=== PATIENT | female | born 1955 ===

== ENCOUNTER 2021-12-29 12:37 | Emergency (ER) | payer OTHER, MEDICAID ==
[~2021-12-29] VITALS: Ht 160 cm; Wt 86.2 kg
[2021-12-29 12:51] VITALS: BP 156/90
--- NOTE | 2021-12-29 15:39 | NUR ---
LAB ATTEMPTED AT BLOOD DRAW SEVERAL TIMES, UNSUCCESSFUL. DR YADAV MADE AWARE.
--- NOTE | 2021-12-29 16:05 | NUR ---
Pt ambulated from chair A to bed 12.
[2021-12-29 16:21] LABS: BASOPHILS % (AUTO) 0.4 % (0.0-2.0); EOSINOPHILS # (AUTO) 0.1 K/uL (0-0.4); EOSINOPHILS % (AUTO) 1.4 % (0.0-4.0); HEMATOCRIT 38.7 % (36-48); HEMOGLOBIN 12.8 g/dL (12.0-16.0); LYMPHOCYTES # (AUTO) 3.9 K/uL (2.5-16.5); LYMPHOCYTES % (AUTO) 39.2 % (20.5-51.1); MEAN CORPUSCULAR HEMOGLOBIN 29 pg (27-31); MEAN CORPUSCULAR HGB CONC 33 g/dL (33-37); MEAN CORPUSCULAR VOLUME 86.9 fL (80-94); MONOCYTES # (AUTO) 0.8 K/uL (0.8-1.0); MONOCYTES % (AUTO) 8.1 % (1.7-9.3); NEUTROPHILS % (AUTO) 50.9 % (42.2-75.2); PLATELET COUNT (AUTO) 430 K/uL (140-450); RED BLOOD CELL COUNT(AUTO) 4.45 MIL/uL (4.20-5.40); RED CELL DISTRIBUTION WIDTH 13.1 % (11.6-13.7); WHITE BLOOD COUNT (AUTO) 9.8 K/uL (4.8-10.8)
[2021-12-29 16:46] LABS: ALBUMIN 4.9 g/dL (3.4-5.0); CHLORIDE 98 mmol/L (98-107); GLUCOSE 106 mg/dL (74-106); POTASSIUM 3.4 mmol/L (3.5-5.1); TOTAL BILIRUBIN 0.5 mg/dL (0.0-1.0); UREA NITROGEN, BLOOD 13 mg/dL (7-18)
[2021-12-29 16:49] LABS: ANION GAP 10.9 (8-16); ASPARTATE AMINOTRANSFERASE 36 U/L (15-37); CARBON DIOXIDE 25.5 mmol/L (21-32); CREATININE 0.8 mg/dL (0.6-1.3); GFR ARICAN-AMERICAN 92 mL/min (>90); SODIUM SERUM 131 mmol/L (136-145)
[2021-12-29] MEDS ORDERED: CLONIDINE HYDROCHLORIDE 0.1 MG TAB PO ONE (17:05)
[2021-12-29] MEDS ORDERED: MECLIZINE 25 MG TAB PO ONE (17:05)
[2021-12-29] MEDS ORDERED: MECL-303 PO (18:29)
--- NOTE | 2021-12-29 18:57 | NUR ---
Patient discharged with v/s stable. Written and verbal after care instructions given and explained. Patient verbalized understanding. Ambulatory with steady gait. All questions addressed prior to discharge. Advised to follow up with PMD.
[2021-12-29 19:07] VITALS: BP 143/80
--- NOTE | 2021-12-29 19:08 | NUR ---
The patient's care was reviewed and supervised by [facility], RN.
== END 2021-12-29 18:57 | disposition home or self-care (01) ==
LOC: MED 12:37
DX: I10 Essential (primary) hypertension (principal); E87.6 Hypokalemia; H55.00 Unspecified nystagmus; J45.909 Unspecified asthma, uncomplicated; E11.9 Type 2 diabetes mellitus without complications; Z79.899 Other long term (current) drug therapy
CPT/HCPCS: 36415; 80053; 84484; 85025; 93005; 99283; J8597